=== PATIENT | male | born 1990 | race Caucasian/White ===

== ENCOUNTER 2020-11-07 19:52 | Inpatient (IN) | payer OTHER ==
[~2020-11-07] VITALS: Ht 182.9 cm; Wt 102.1 kg
[2020-11-07] MEDS ORDERED: OXYCODONE/APAP 5-325 MG TABLET PO ONE (20:30)
[2020-11-07] MEDS: CHOLECALCIFEROL 1,000 UNIT TABLET PO SCH (20:52)
[2020-11-07 20:54] LABS: HEMATOCRIT 47.1 % (36.7-47.1); MEAN CORPUSCULAR HEMOGLOBIN 28.9 uug (23.8-33.4); MEAN CORPUSCULAR VOLUME 84.3 fL (73.0-96.2); PLATELET COUNT (AUTO) 114 K/uL (152-348)
[2020-11-07] MEDS ORDERED: OXYCODONE/APAP 5-325 MG TABLET ONE (20:56)
[2020-11-07] MEDS ORDERED: CHOLECALCIFEROL 1,000 UNIT TABLET ONE (20:56)
[2020-11-07 20:59] LABS: CREATININE 1.1 mg/dL (0.6-1.3); POTASSIUM 3.8 mmol/L (3.5-5.1)
--- NOTE | 2020-11-07 20:59 | NUR ---
Placed patient on nasal cannula 3 LPM, O2 saturation increased from 93% on room air to 98%.
--- NOTE | 2020-11-07 21:00 | NUR ---
Requested urine sample of patient, patient states he will try to provide it later.
[2020-11-07 21:39] LABS: BILIRUBIN,TOTAL 0.6 mg/dL (0.2-1.0); TOTAL PROTEIN, SERUM 7.8 g/dL (6.4-8.2)
--- NOTE | 2020-11-07 22:03 | NUR ---
Patient offered food and drink. Declined. Stated he just wanted to eat ice. Ice provided.
--- NOTE | 2020-11-07 22:55 | NUR ---
Page Epic panel sanitation laborer, waiting for Dr Napoles to call back.
--- NOTE | 2020-11-07 23:12 | NUR ---
Patient will be assigned to telemetry room 314.
[2020-11-07] MEDS ORDERED: HYDROCODONE/APAP 5-325MG TABLET PO PRN (23:15)
--- NOTE | 2020-11-07 23:15 | NUR ---
Report given to RN Will.
--- NOTE | 2020-11-07 23:55 | NUR ---
ADMITTED PATIENT IN TELE FLOOR UNDER THE CARE OF DR. YANG. PATIENT ALERT ORIENTED, NO SOB NO CHEST PAIN, ON OXYGEN 3 LPM SAT 98%, PATIENT POSITIVE FOR COVID, PATIENT HAS NO COVID 19 VACCINE, NO FLU VACCINE, NO PNA VACCINE. PATIENT HAS EPISODE OF VOMITING WITH BROWNISH COLOR LIQUID IN SMALL AMOUNT, INSTRUCTED NOT TO DRINK OR EAT AT THIS TIME DUE TO VOMITING. PATIENT WILL MEDICATE FOR NAUSEA/VOMITING, PATIENT ON TELE MONITOR SINUS RHYTHM CALL LIGHT WITHIN
[2020-11-08] VITALS (9 sets, daily range): BP systolic 113–129; BP diastolic 74–83
--- NOTE | 2020-11-08 | NUR ---
Pt. admitted to 314, under care of Dr. Sanchez Belongs List completed
[2020-11-08] MEDS ORDERED: AZITHROMYCIN 500 MG VIAL IV ONE (00:18)
[2020-11-08] MEDS: AZITHROMYCIN IV 500 MG in IV DEXTROSE 5% 250 ML IV SCH ×2 (00:34→23:02)
--- NOTE | 2020-11-08 00:35 | NUR ---
azithromycin 500mg enter manually , medication unscannable.
[2020-11-08] MEDS: ONDANSETRON 4 MG/2 ML VIAL IV PRN ×3 (01:19→23:11)
[2020-11-08] MEDS: PANTOPRAZOLE SODIUM 40 MG TABLET.DR PO SCH (06:13)
[2020-11-08 06:31] LABS: HEMATOCRIT 47.1 % (36.7-47.1); MEAN CORPUSCULAR HEMOGLOBIN 29.3 uug (23.8-33.4); MEAN CORPUSCULAR VOLUME 85.8 fL (73.0-96.2); PLATELET COUNT (AUTO) 113 K/uL (152-348)
--- NOTE | 2020-11-08 07:00 | NUR ---
PATIENT ALERT ORIENTED, NO SOB NO CHEST PAIN, ON 3LPM NC OXYGEN SAT 98%, NO COMPLAIN OF DISCOMFORT. PATIENT APPEARS ANXIOUS AT THIS TIME, PATIENT ON DROPLET PRECAUTION FOR COVID POSITIVE RAPID. PATIENT ON TELE MONITOR SINUS RHYTHM. CONT TO MONITOR.
[2020-11-08 07:12] LABS: BILIRUBIN,TOTAL 0.5 mg/dL (0.2-1.0); CREATININE 1.2 mg/dL (0.6-1.3); MAGNESIUM 2.8 mg/dL (1.8-2.4); PHOSPHOROUS 4.3 mg/dL (2.5-4.9); POTASSIUM 4.7 mmol/L (3.5-5.1); TOTAL PROTEIN, SERUM 8.1 g/dL (6.4-8.2)
--- NOTE | 2020-11-08 09:30 | NUR ---
Received patient awake, alert, oriented x 4, not in any form of distress on 3LPM via nasal cannula. Patient denies any pain or discomfort. With left AC peripheral line intact and patent. Compliant with medications. Assisted with his needs. Call light and frequently used items placed within patient's reach.
[2020-11-08] MEDS: DEXAMETHASONE SOD PHOSPHATE 4 MG INJ IV SCH (09:39)
[2020-11-08] MEDS: ENOXAPARIN SODIUM 40 MG/0.4 ML DISP.SYRIN SQ SCH (09:40)
[2020-11-08] MEDS ORDERED: CEFTRIAXONE 1 G in IV DEXTROSE 5% 50 ML IV SCH (10:00)
--- NOTE | 2020-11-08 10:30 | NUR ---
Patient seen by Dr. Rogers, update given to MD. MD said to check SpO2 on room air and noted with 92% with no complain of dyspnea or any discomfort at this time. Will continue to monitor.
[2020-11-08] MEDS: CHOLECALCIFEROL 1,000 UNIT TABLET PO SCH (10:42)
[2020-11-08] MEDS: CEFTRIAXONE 2 G in IV DEXTROSE 5% 100 ML IV SCH (11:43)
[2020-11-08] MEDS ORDERED: REMDESIVIR (CHARGED) 200 MG in IV NORMAL SALINE 210 ML IV ONE (12:00)
[2020-11-08] MEDS: REMDESIVIR (CHARGED) 200 MG in IV NORMAL SALINE 210 ML IV ONE ×2 (13:14→14:36)
[2020-11-08] MEDS: ACETAMINOPHEN 325 MG TABLET PO PRN ×2 (13:41→22:52)
--- NOTE | 2020-11-08 14:07 | NUR ---
Patient noted with fever of 101.2, given tylenol. followed up with pharmacist Ryan and Dr. Londono if OK to proceed administering Remdesivir and they both said OK to administer.
--- NOTE | 2020-11-08 14:20 | NUR ---
Patient seen by Dr. Londono, update given to MD with no new order at this time.
--- NOTE | 2020-11-08 19:00 | NUR ---
Received patient awake, alert, oriented x 4, not in any distress on 2L via nasal cannula. Patient denies any pain or discomfort. With left AC peripheral line intact and patent. Compliant with medications. Assisted with his needs. Call light within patient's reach.
--- NOTE | 2020-11-08 23:15 | NUR ---
pt c/o nausea Zofran 4mg iv given per md orders
[2020-11-09] VITALS (7 sets, daily range): BP systolic 105–131; BP diastolic 55–78
--- NOTE | 2020-11-09 00:50 | NUR ---
ptis resting in his bed antibiotic given call light with in reach
[2020-11-09] MEDS: ACETAMINOPHEN 325 MG TABLET PO PRN ×3 (05:02→20:16)
[2020-11-09] MEDS: PANTOPRAZOLE SODIUM 40 MG TABLET.DR PO SCH (06:03)
[2020-11-09 07:00] LABS: HEMATOCRIT 45.6 % (36.7-47.1); MEAN CORPUSCULAR HEMOGLOBIN 29.2 uug (23.8-33.4); MEAN CORPUSCULAR VOLUME 84.5 fL (73.0-96.2); PLATELET COUNT (AUTO) 118 K/uL (152-348)
[2020-11-09 07:10] LABS: BILIRUBIN,DIRECT 0.2 mg/dL (0.0-0.2); BILIRUBIN,TOTAL 0.6 mg/dL (0.2-1.0); CREATININE 1.1 mg/dL (0.6-1.3); POTASSIUM 4.5 mmol/L (3.5-5.1); TOTAL PROTEIN, SERUM 7.5 g/dL (6.4-8.2)
[2020-11-09] MEDS: ENOXAPARIN SODIUM 40 MG/0.4 ML DISP.SYRIN SQ SCH (08:10)
[2020-11-09] MEDS: DEXAMETHASONE SOD PHOSPHATE 4 MG INJ IV SCH (08:23)
[2020-11-09] MEDS: CHOLECALCIFEROL 1,000 UNIT TABLET PO SCH (08:24)
[2020-11-09] MEDS: CEFTRIAXONE 2 G in IV DEXTROSE 5% 100 ML IV SCH (10:03)
[2020-11-09] MEDS: REMDESIVIR (CHARGED) 100 MG in IV NORMAL SALINE 100 ML IV SCH (12:53)
[2020-11-09] MEDS: ONDANSETRON 4 MG/2 ML VIAL IV PRN (12:56)
[2020-11-10] MEDS ORDERED: AZITHROMYCIN 500 MG VIAL IV ONE (00:27)
[2020-11-10] MEDS: AZITHROMYCIN IV 500 MG in IV DEXTROSE 5% 250 ML IV SCH (00:52)
[2020-11-10] MEDS: ONDANSETRON 4 MG/2 ML VIAL IV PRN (05:34)
[2020-11-10] MEDS: PANTOPRAZOLE SODIUM 40 MG TABLET.DR PO SCH (06:08)
--- NOTE | 2020-11-10 07:02 | NUR ---
Patient alert x4.NSR on Tele.PAtient temp last night was 101.1.Tylenol was given .Cooling blanket /measures rendered.Temp this morning 99.6.Iv patent and intact on RT ac 20 g and hand 22g.ATb IV infused. No a/r noted. Patient ambulates to bathroom. Voided well.All needs anticipated and met accordingly. Will endorse to oncoming shift.
[2020-11-10 07:04] LABS: HEMATOCRIT 46.3 % (36.7-47.1); MEAN CORPUSCULAR VOLUME 84.5 fL (73.0-96.2); PLATELET COUNT (AUTO) 130 K/uL (152-348)
[2020-11-10 07:17] LABS: BILIRUBIN,DIRECT 0.2 mg/dL (0.0-0.2); BILIRUBIN,TOTAL 0.5 mg/dL (0.2-1.0); CREATININE 1.1 mg/dL (0.6-1.3); POTASSIUM 4.5 mmol/L (3.5-5.1); TOTAL PROTEIN, SERUM 7.2 g/dL (6.4-8.2)
[2020-11-10] MEDS: CHOLECALCIFEROL 1,000 UNIT TABLET PO SCH (09:45)
[2020-11-10] MEDS: CEFTRIAXONE 2 G in IV DEXTROSE 5% 100 ML IV SCH (09:45)
[2020-11-10] MEDS: DEXAMETHASONE SOD PHOSPHATE 4 MG INJ IV SCH (09:45)
[2020-11-10] MEDS: ENOXAPARIN SODIUM 40 MG/0.4 ML DISP.SYRIN SQ SCH (09:50)
[2020-11-10 11:48] VITALS: BP 129/82
[2020-11-10] MEDS: REMDESIVIR (CHARGED) 100 MG in IV NORMAL SALINE 100 ML IV SCH (13:50)
[2020-11-10 15:46] VITALS: BP 117/73
--- NOTE | 2020-11-10 19:15 | NUR ---
Patient is alert/oriented, denies pain. Does not want his o2 on, he is saturation at 96% on room air. Afebrile. Kept call light within reach. Will continue to monitor.
[2020-11-10 20:20] VITALS: BP 118/79
[2020-11-11 00:10] VITALS: BP 121/70
[2020-11-11] MEDS: AZITHROMYCIN IV 500 MG in IV DEXTROSE 5% 250 ML IV SCH ×2 (00:10→23:49)
[2020-11-11 04:20] VITALS: BP 115/76
[2020-11-11] MEDS: PANTOPRAZOLE SODIUM 40 MG TABLET.DR PO SCH (05:26)
[2020-11-11 06:21] LABS: HEMATOCRIT 47.7 % (36.7-47.1); MEAN CORPUSCULAR HEMOGLOBIN 28.8 uug (23.8-33.4); MEAN CORPUSCULAR VOLUME 84.3 fL (73.0-96.2); PLATELET COUNT (AUTO) 145 K/uL (152-348)
--- NOTE | 2020-11-11 07:03 | NUR ---
Patient denies discomfort. All needs attended during the shift. Endorsed to the next shift for continuity of care.
[2020-11-11 07:14] LABS: BILIRUBIN,DIRECT 0.1 mg/dL (0.0-0.2); BILIRUBIN,TOTAL 0.5 mg/dL (0.2-1.0); CREATININE 0.8 mg/dL (0.6-1.3); PHOSPHOROUS 3.4 mg/dL (2.5-4.9); POTASSIUM 4.1 mmol/L (3.5-5.1); TOTAL PROTEIN, SERUM 7.5 g/dL (6.4-8.2)
[2020-11-11] MEDS: CHOLECALCIFEROL 1,000 UNIT TABLET PO SCH (08:34)
[2020-11-11] MEDS: DEXAMETHASONE SOD PHOSPHATE 4 MG INJ IV SCH (08:34)
[2020-11-11] MEDS: ENOXAPARIN SODIUM 40 MG/0.4 ML DISP.SYRIN SQ SCH (08:35)
[2020-11-11] MEDS: CEFTRIAXONE 2 G in IV DEXTROSE 5% 100 ML IV SCH (11:50)
[2020-11-11 12:00] VITALS: BP 123/76
[2020-11-11] MEDS: REMDESIVIR (CHARGED) 100 MG in IV NORMAL SALINE 100 ML IV SCH (14:17)
[2020-11-11 16:00] VITALS: BP 123/79
--- NOTE | 2020-11-11 18:41 | NUR ---
Patient ongoing treatment of rendesivir.. As per MD Rogers, Patient can be discharge after treatment. Patient continue on room air with oxygen saturation at 97%. no c/o of pain/discomfort. will continue monitor
[2020-11-11 20:12] VITALS: BP 120/79
[2020-11-12 00:08] VITALS: BP 108/78
[2020-11-12 04:25] VITALS: BP 118/81
[2020-11-12] MEDS: PANTOPRAZOLE SODIUM 40 MG TABLET.DR PO SCH (06:03)
--- NOTE | 2020-11-12 06:12 | NUR ---
PATIENT SLEPT WELL THROUGHOUT THE NIGHT. ON TELE SR. NO C/O PAIN OR DISCOMFORT. NO RESP. DISTRESS NOTED. VS WNL. CALL LIGHT IN REACH. ALL NEEDS ATTENDED. WILL CONTINUE TO MONITOR AND ASSESS.
[2020-11-12 06:51] LABS: HEMATOCRIT 46.2 % (36.7-47.1); MEAN CORPUSCULAR HEMOGLOBIN 29.1 uug (23.8-33.4); MEAN CORPUSCULAR VOLUME 83.7 fL (73.0-96.2); PLATELET COUNT (AUTO) 207 K/uL (152-348)
[2020-11-12 07:10] LABS: BILIRUBIN,DIRECT 0.2 mg/dL (0.0-0.2); BILIRUBIN,TOTAL 0.5 mg/dL (0.2-1.0); CREATININE 0.8 mg/dL (0.6-1.3); POTASSIUM 4.1 mmol/L (3.5-5.1); TOTAL PROTEIN, SERUM 7.3 g/dL (6.4-8.2)
[2020-11-12] MEDS: DEXAMETHASONE SOD PHOSPHATE 4 MG INJ IV SCH (08:10)
[2020-11-12] MEDS: ENOXAPARIN SODIUM 40 MG/0.4 ML DISP.SYRIN SQ SCH (08:11)
[2020-11-12] MEDS ORDERED: ENSURE ENLIVE (VAN) 240 ML LIQUID PO SCH (09:00)
[2020-11-12] MEDS: CHOLECALCIFEROL 1,000 UNIT TABLET PO SCH (09:02)
--- NOTE | 2020-11-12 09:18 | NUR ---
Patient in bed , alert and oriented x 4, able to follow simple commands, denies of any pain at this time. Patient in oxygen at 3LPM saturating at 93%. When asked if he needs the oxygen patient said "YES". Patient afebrile at this time 97.9. All due meds given per MD order. IV site on the right hand intact. Placed call light within reach.
[2020-11-12] MEDS: CEFTRIAXONE 2 G in IV DEXTROSE 5% 100 ML IV SCH (10:02)
--- NOTE | 2020-11-12 12:58 | NUR ---
BP checked before administering Remdesivir. BP:121/71 P:73 02 sat 95% RA. After 15 mins BP is 115/73 P:72 02 sat 95% RA. BP is recheck after 30 mins. BP: 122/75 with pulse of 72 02 SAT 95% ra. Patient has no s/s of distress. Call light placed within easy reach.
[2020-11-12] MEDS: REMDESIVIR (CHARGED) 100 MG in IV NORMAL SALINE 100 ML IV SCH (12:59)
[2020-11-12 15:40] VITALS: BP 127/77
[2020-11-12] MEDS ORDERED: METH4TAB3 PO (16:04)
--- NOTE | 2020-11-12 16:29 | NUR ---
Patient to DC home per Dr Londono . Discharge instructions given and stated that he needs to quarantine 10-14 days after the first symptoms started per MD order. IV on the right hand removed. Body assessment done. Patient is alert and oriented x 4 denies of any pain, no s/s of distress. Patient in room air saturating at 95% Patient belongings checked. Discharge instructions given and remind him to follow up with his PCP. 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 VS taken BP :122/75 P:80 T:97.9 RR:17
--- NOTE | 2020-11-12 17:14 | NUR ---
Reminded patient that his quarantine ends in Nov 15. Assisted patient to the lobby via wheelchair by the DISK [employer]OATER fish bait picker by his brother and assisted to their private car.
== END 2020-11-12 17:00 | disposition home or self-care (01) | DRG 137 ==
LOC: ER 19:52 → MEDSURG3 23:40 → TELE3 11-08 00:15
PROVIDERS: ADMIT Student in an Organized Health Care Education/Training Program; ATTEND Student in an Organized Health Care Education/Training Program
PROC: XW033E5 Introduction of Remdesivir Anti-infective into Peripheral Vein, Percutaneous Approach, New Technology Group 5 (ICD-10-PCS; principal; 2020-11-08)
DX: U07.1 COVID-19 (principal); J96.01 Acute respiratory failure with hypoxia; J12.82 Pneumonia due to coronavirus disease 2019; E66.9 Obesity, unspecified; E78.5 Hyperlipidemia, unspecified; E86.0 Dehydration; E86.1 Hypovolemia; E87.1 Hypo-osmolality and hyponatremia; K76.0 Fatty (change of) liver, not elsewhere classified; F17.210 Nicotine dependence, cigarettes, uncomplicated; R74.01 Elevation of levels of liver transaminase levels; J40 Bronchitis, not specified as acute or chronic; Z68.30 Body mass index [BMI] 30.0-30.9, adult
CPT/HCPCS: 36415; 70030-TC; 71045; 83615; 83735; 84100; 85025; 85610; 85730; 86140; 93005; A4217; A4663; G0378; J0456; J0696; J1100; J1650; J2405; J3490; J7050; J7060